=== PATIENT | female | born 1945 | race Caucasian/White ===

== ENCOUNTER 2023-06-04 07:07 | Emergency (ER) | payer MEDICARE, BC, SELFPAY ==
[2023-06-04 07:11] VITALS: BP 160/64
[2023-06-04 07:31] VITALS: BMI 24.0
[2023-06-04] MEDS: TYLENOL 650 MG PO (08:08)
--- NOTE | 2023-06-04 08:30 | ED.GENMED ---
History of Present Illness
General
Chief Complaint: Musculo-Skeletal Complaint
Source: patient
Exam Limitations: none
Time Seen by Provider: 06/04/23 07:19
Nursing documentation reviewed up to this point in time: agreed with
Travel History
Have you had any contact with someone who has COVID-19?: No
Do you have any symptoms of coronavirus? Fever > 100 degrees, chills, cough, shortness of breath, sore throat, loss of taste or smell, muscle aches, or headache?: No
History of Present Illness
History of Present Illness:
Patient is a 77-year-old female who reports mechanical fall off her step outside landing on her left wrist. She denies hitting her head she complains of left wrist pain small abrasion to left fingers. She has no other complaints she denies
headache. She is on blood thinners. She is however left hand dominant.
Past History
Past History
ED Past Medical History: Other (osteoporosis )
ED Past Surgical History: None
Social History
Tobacco: Non-smoker
Alcohol: None
Drug: None
Personal:
Living: with family
Employment: Retired
Review of Systems
Review of Systems
Allergies reviewed?: Yes
All Other Systems: ROS reviewed and negative except as documented in HPI and ROS
Constitutional: Reports no symptoms
Musculoskeletal: Reports other (left wrist pain/injury )
Skin: Reports other (abrasion to fingers )
Neurological: Reports no symptoms
Psychiatric: Reports no symptoms
Phy Exam
General Physical Exam
General Presentation: no apparent distress
General age: appears stated age
General Skin: warm and dry
General Habitus: normal
General Mental: alert
General Hydration: appears well hydrated
Neurological Exam
Neurological Exam: alert and oriented x3
Musculoskeletal Exam
Musculoskeletal Exam: other (LUE with strong pulses + tender to distal wrist with mild deformity no abrasion/laceration to wrist small abrasion to distal left middle fingers , normal cap refill normal distal sensation)
Skin Exam
Skin Exam: normal color and warm/dry
Psychiatric Exam
Psychiatric Exam: normal mood/affect
Course
Orders/Labs/Results
Orders:
Orders
06/04/23 07:32
CR Hand - Left Min 3 Views Urgent
Comment:
Reason For Exam: fall, L wirst pain, L 3rd & 4th finger pain
CR Wrist - Left Min 3 Views Urgent
Comment:
Reason For Exam: fall, L wirst pain, L 3rd & 4th finger pain
06/04/23 08:07
Acetaminophen [Tylenol] 650 mg .ROUTE .STK-MED ONE
06/04/23 08:08
Acetaminophen [Tylenol] 650 mg PO NOW STA
06/04/23 08:29
Splints/Slings/Crut- Treatment ONCE
Location: Left
Type of Splint: Volar
06/04/23 08:30
Tetanus/Diphth/Acelpertussis [Adacel] 0.5 ml IM .ONCE ONE
Vital Signs
Initial and Last Documented VS:
Initial Vital Signs
Temp Pulse Resp BP Pulse Ox
97.1 F 80 20 160/64 99
06/04/23 07:11 06/04/23 07:11 06/04/23 07:11 06/04/23 07:11 06/04/23 07:11
Last Documented Vital Signs
Temp Pulse Resp BP Pulse Ox
97.1 F 80 20 160/64 99
06/04/23 07:11 06/04/23 07:11 06/04/23 07:11 06/04/23 07:11 06/04/23 07:11
MDM/Problems Addressed
Differential Diagnosis Includes:
Not limited to wrist fracture for sprain
MDM/Problems Addressed:
77-year-old female with a fracture to left wrist , splinted with a normal neurovascular exam patient splinted and will follow-up with Ortho
*Critical Care Note
Total Time (30-74mins, 75-104mins- exclusive of procedures): Not Applicable
ED Attending Note
-
Portions of this chart may have been created with voice recognition software.� Occasional wrong word or��sound alike� substitutions may have occurred due to the inherent limitations of voice recognition software.
Discharge Plan
Departure
Patient Disposition: Home (Routine Discharge)
Date of Disposition: 06/04/23
Time of Disposition: 08:51
Patient with high blood pressure during this ER visit?: Yes
Condition: Fair
Covid-19: Not Applicable
Discharge Problem:
Fracture of wrist
Instructions: Wrist Fracture (DC), Skin Abrasions (DC), Splint Care
Prescriptions:
No Action
calcium carbonate [Oyster Shell Calcium 500] 500 MG tablet
500 mg PO BID
Cipro
1 tab PO Q12H
VITAMIN D
1 tab PO DAILY
Referrals:
Chika Tinajero I., DO [Active] -
Gagan Arias DO [Family Provider] -
Activity Restrictions/Additional Instructions:
Wear splint until seen and evaluated by orthopedic doctor. Do not wet splint keep elevate is much as possible. Wear sling for support during the day remove at night while sleeping. You may alternate between Tylenol and ibuprofen as discussed.
Return if any worsening of symptoms or increased pain, cold, numb, blue fingers.
You may take Ibuprofen (Advil/motrin) 400 mg every 8 hsr with food and Tylenol (acetaminophen ) 650 mg every 6 hrs as needed.
call orthopedics on Tuesday for an appoint in the next several days.
Interventions
Interventions:
*Risk Screen - Suicide Last Done: 06/04/23 07:11
*General Assessment Last Done: 06/04/23 07:11
*Neglect/Abuse Screening Last Done: 06/04/23 07:11
*Nursing Disposition Last Done: 06/04/23 09:14
ED-Musculoskeletal Assessment Last Done: 06/04/23 07:34
ED- Neurological Assessment Last Done: 06/04/23 07:34
ED-Skin Assessment Last Done: 06/04/23 07:34
Discharge Date and Time
Discharge Date/Time: 06/04/23 09:15
Print Language: GU[place]
[2023-06-04] MEDS: ADACEL 0.5 ML IM (09:01)
== END 2023-06-04 09:15 | disposition home or self-care (01) ==
LOC: EMR 07:07
PROVIDERS: EMERGENCY PHYSICIAN Emergency Medicine; FAMILY PHYSICIAN Family Medicine
DX: S62.102A Fracture of unspecified carpal bone, left wrist, initial encounter for closed fracture (principal); W19.XXXA Unspecified fall, initial encounter; Z23 Encounter for immunization; M81.0 Age-related osteoporosis without current pathological fracture; Z79.01 Long term (current) use of anticoagulants
CPT/HCPCS: 99283; 29125; 90471; 73110; 73130; 90715

== ENCOUNTER → 2023-06-06 14:07 | Outpatient (REF) | payer MEDICARE, BC, SELFPAY ==
[2023-06-06 15:36] LABS: % Basophils 0.8 % (0-2); % Eosinophils 2.1 % (0-6); % Immature Granulocytes 0.2 % (0-0.5); % Lymphocytes 25.8 % (20.5-51.1); % Monocytes 9.7 % (1.7-9.3); % Neutrophils 61.4 % (42.2-75.2); Absolute Basophils 0.1 10^3/uL (0-0.2); Absolute Eosinophils 0.1 10^3/uL (0-0.7); Absolute Lymphocytes 1.6 10^3/uL (1.2-3.4); Absolute Monocytes 0.6 10^3/uL (0.1-0.6); Absolute Neutrophils 3.7 10^3/uL (1.4-6.5); Hematocrit 35.9 % (37.0-47.0); Hemoglobin 12.4 g/dL (12.0-16.0); Mean Corp Hgb Conc. 34.5 g/dL (33.0-37.0); Mean Corpuscular Hgb 29.7 pg (27.0-31.0); Mean Corpuscular Volume 85.9 fL (81.0-99.0); Mean Platelet Volume 9.5 fL (7.4-10.4); Nucleated Red Blood Cells % 0 %; Platelet Count 216 10^3/uL (130-400); Red Blood Cell Count 4.18 10^6/uL (4.20-5.40); White Blood Cell Count 6.1 10^3/uL (4.8-10.8)
== END ==
LOC: RCS 14:07
PROVIDERS: ATTENDING PHYSICIAN Orthopaedic Surgery Hand Surgery; FAMILY PHYSICIAN Family Medicine
DX: Z01.818 Encounter for other preprocedural examination (principal)
CPT/HCPCS: 36415; 85025; 93005

== ENCOUNTER 2023-06-08 06:31 | Day surgery (SDC) | payer MEDICARE, BC, SELFPAY ==
[2023-06-08] VITALS (10 sets, daily range): BP systolic 120–148; BP diastolic 64–105; BMI 24.1
[2023-06-08] MEDS: TYLENOL 1000 MG PO (12:03)
[2023-06-08] MEDS: CELEBREX 200 MG PO (12:03)
[2023-06-08] MEDS: NORMOSOL-R 1000 IV (12:07)
[2023-06-08] MEDS: DILAUDID 0.25 MG IV (15:17)
== END 2023-06-08 17:30 | disposition home or self-care (01) ==
LOC: SDS 06:31
PROVIDERS: ATTENDING PHYSICIAN Orthopaedic Surgery Hand Surgery
DX: S52.502A Unspecified fracture of the lower end of left radius, initial encounter for closed fracture (principal); W01.0XXA Fall on same level from slipping, tripping and stumbling without subsequent striking against object, initial encounter
CPT/HCPCS: 25607; C1713

== ENCOUNTER → 2024-08-14 10:55 | Outpatient (REF) | payer MEDICARE, BC, SELFPAY | LOC: HWWDC 10:55 | PROVIDERS: ATTENDING PHYSICIAN Family Medicine; REFERRING PHYSICIAN Obstetrics & Gynecology | DX: Z12.31 Encounter for screening mammogram for malignant neoplasm of breast (principal) | CPT/HCPCS: 77063; 77067 ==

== ENCOUNTER → 2024-10-25 14:44 | Outpatient (REF) | payer MEDICARE, BC, SELFPAY | LOC: HWRCS 14:44 | PROVIDERS: ATTENDING PHYSICIAN Internal Medicine Cardiovascular Disease; FAMILY PHYSICIAN Physician Assistant Medical | DX: R01.1 Cardiac murmur, unspecified (principal) | CPT/HCPCS: 93306 ==

== ENCOUNTER → 2024-11-06 12:44 | Outpatient (REF) | payer MEDICARE, BC, SELFPAY | LOC: RCS 12:44 | PROVIDERS: ATTENDING PHYSICIAN Internal Medicine Cardiovascular Disease; FAMILY PHYSICIAN Physician Assistant Medical | DX: I35.0 Nonrheumatic aortic (valve) stenosis (principal); I34.0 Nonrheumatic mitral (valve) insufficiency | CPT/HCPCS: 93017; 93350 ==